=== PATIENT | male | born 1945 | race Caucasian/White ===

== ENCOUNTER 2022-07-20 04:57 | Observation (INO) ==
[2022-07-20] MEDS ORDERED: NITROGLYCERIN 2% OINT 1 INCH/GM PACK TOP STA (05:06)
[2022-07-20] MEDS ORDERED: MORPHINE 2 MG/1 ML SYRINGE IV STA (05:06)
[2022-07-20] MEDS ORDERED: ONDANSETRON 4 MG/2 ML VIAL IV STA (05:06)
[2022-07-20] MEDS ORDERED: ASPIRIN 325 MG TABLET PO STA (05:06)
[2022-07-20 05:18] LABS: Basophils % 0.2 % (0.0-0.8); Eosinophils % 0.2 % (0.00-10.9); Hematocrit 40.7 VOL% (42.0-52.0); Hemoglobin 13.4 GM/DL (14.0-18.0); Immature Granulocytes % 0.7 %; Immature Granulocytes Absolute 0.06 #; Lymphocytes # 2.7 10*3/uL (1.4-4.0); Lymphocytes % 30.2 % (21.2-54.2); Mean Corpuscular HGB Conc 32.9 GM/DL (32-36); Mean Corpuscular Volume 84.8 FL (87-102); Mean Platelet Volume 11.4 FL (9.6-12.0); Monocytes # 0.4 10*3/uL (0.11-0.8); Monocytes % 4.8 % (1.7-12.7); Neutrophils % 63.9 % (38.7-73.9); Platelet Count 204 T/CUMM (130-400); Red Cell Distribution Width 16.2 % (9.3-17.3); White Blood Count 9.1 T/CUMM (4-12)
[2022-07-20 05:27] LABS: Albumin 3.5 G/DL (3.4-5.0); Bilirubin,Total 0.8 MG/DL (0.20-1.00); Osmolality,Calculated 287.1 MOS/KG (273-304); Potassium 5.1 MMOL/L (3.5-5.1); Total Protein 6.1 G/DL (6.4-8.2)
[2022-07-20 05:33] LABS: PT Patient Result 11.4 SECS (10.1-12.1)
[2022-07-20] MEDS ORDERED: MORPHINE 2 MG/1 ML SYRINGE IV PRN (05:34)
[2022-07-20] MEDS ORDERED: ALBUTEROL 2.5 MG/3 ML NEB RESP TX PRN (05:50)
[2022-07-20 06:28] LABS: Risk Ratio 1.97; VLDL Cholesterol 18.2 MG/DL
[2022-07-20] MEDS ORDERED: INFLUENZA VIRUS VACCINE 0.5 ML SYRINGE IM ONE (07:24)
[2022-07-20] MEDS ORDERED: NITROGLYCERIN SL 0.4 MG TABLET SL PRN (07:54)
[2022-07-20] MEDS: FUROSEMIDE 20 MG TABLET PO SCH ×2 (08:58→16:01)
[2022-07-20] MEDS: MULTIVITAMIN (BEROCCA) TABLET PO SCH (08:58)
[2022-07-20] MEDS: APIXABAN 5 MG TABLET PO SCH ×2 (08:59→20:37)
[2022-07-20] MEDS: TAMSULOSIN 0.4 MG CAPSULE PO SCH ×2 (08:59→20:37)
[2022-07-20] MEDS: hydrALAZINE 10 MG TABLET PO SCH ×2 (08:59→20:37)
[2022-07-20] MEDS: amLODIPine 2.5 MG TABLET PO SCH (08:59)
[2022-07-20] MEDS: METOPROLOL TARTRATE 25 MG TABLET PO SCH ×2 (08:59→20:37)
[2022-07-20] MEDS ORDERED: SACUBITRIL/VALSARTAN 49-51 MG TABLET PO SCH (09:00)
[2022-07-20] MEDS: AZITHROMYCIN 250 MG TABLET PO SCH (09:47)
[2022-07-20] MEDS ORDERED: cefTRIAXone 1,000 MG in SODIUM CHLORIDE 0.9% 100 ML IV SCH (10:00)
[2022-07-20 11:08] LABS: Bacteria,Urine Occasional /HPF (Few); Bilirubin,Urine Negative (Negative); Blood, Urine Negative (Negative); Glucose,Urine (UA) Negative (Negative); Ketones,Urine Negative (Negative); Nitrite,Urine Negative (Negative); Protein,Urine Trace mg/dL (Negative); RBC,Urine <1 /HPF (0-4); Squamous Epithelial Cell,Urine Occasional /HPF (0-10); Urine Appearance Clear (Clear); Urine Color Yellow (Yellow); Urine Urobilinogen 0.2 eU/dL (<2.0)
[2022-07-20] MEDS ORDERED: FINASTERIDE 5 MG TABLET PO SCH (21:00)
[2022-07-20] MEDS ORDERED: ATORVASTATIN 40 MG TABLET PO SCH (21:00)
[2022-07-21] MEDS ORDERED: ACETAMINOPHEN 325 MG TABLET PO PRN (03:52)
[2022-07-21 05:18] LABS: Basophils % 0.2 % (0.0-0.8); Hematocrit 39.2 VOL% (42.0-52.0); Hemoglobin 12.4 GM/DL (14.0-18.0); Immature Granulocytes % 0.9 %; Immature Granulocytes Absolute 0.07 #; Lymphocytes # 2.1 10*3/uL (1.4-4.0); Lymphocytes % 25.2 % (21.2-54.2); Mean Corpuscular HGB Conc 31.6 GM/DL (32-36); Mean Corpuscular Volume 87.5 FL (87-102); Mean Platelet Volume 11.8 FL (9.6-12.0); Monocytes # 0.3 10*3/uL (0.11-0.8); Monocytes % 4.2 % (1.7-12.7); Neutrophils % 69.5 % (38.7-73.9); Platelet Count 213 T/CUMM (130-400); Red Blood Count 4.48 MC/CUMM (3.8-5.5); Red Cell Distribution Width 15.9 % (9.3-17.3); White Blood Count 8.1 T/CUMM (4-12)
[2022-07-21 05:43] LABS: Albumin 3.3 G/DL (3.4-5.0); Bilirubin,Total 0.7 MG/DL (0.20-1.00); Calcium 8.6 MG/DL (8.5-10.1); Calcium 8.8 MG/DL (8.5-10.1); Osmolality,Calculated 278.8 MOS/KG (273-304); Osmolality,Calculated 282.5 MOS/KG (273-304); Potassium 4.4 MMOL/L (3.5-5.1)
[2022-07-21] MEDS: SODIUM CHLORIDE 0.9% 1,000 ML IV SCH ×2 (07:34→08:47)
[2022-07-21 07:40] VITALS: BP 129/76
[2022-07-21] MEDS ORDERED: ASPIRIN EC 81 MG TABLET PO SCH (09:00)
[2022-07-21] MEDS: APIXABAN 5 MG TABLET PO SCH (09:08)
[2022-07-21] MEDS: METOPROLOL TARTRATE 25 MG TABLET PO SCH (09:08)
[2022-07-21] MEDS: MULTIVITAMIN (BEROCCA) TABLET PO SCH (09:08)
[2022-07-21] MEDS: hydrALAZINE 10 MG TABLET PO SCH (09:08)
[2022-07-21] MEDS: AZITHROMYCIN 250 MG TABLET PO SCH (09:08)
[2022-07-21] MEDS: amLODIPine 2.5 MG TABLET PO SCH (09:08)
[2022-07-21] MEDS: TAMSULOSIN 0.4 MG CAPSULE PO SCH (09:08)
== END 2022-07-21 10:55 | disposition home or self-care (01) ==
LOC: N.ED 04:57 → N.EDINP 04:57 → SUATTDRO 05:34 → N.2W 06:13
PROVIDERS: ADMIT Internal Medicine; ATTEND Internal Medicine